=== PATIENT | male | born 1945 | race Caucasian/White ===

== ENCOUNTER 2016-08-02 12:19 | Emergency (ER) | payer MEDICARE ==
[~2016-08-02] VITALS: Ht 182.9 cm; Wt 168.4 kg
[~2016-08-02 12:19] MED LIST: ACET325T14 PO; ACET500T71 PO; AMLO5TAB2 PO; ASPI-515 PO; ASPI325T4 PO; GABA300C10 PO; IBUP200C8 PO; LORA2TAB99 PO; MUPI22OI2 NS; OXYC5CAP4 PO; PAIN MEDICATION PO; TRAM50TA2 PO
[2016-08-02] MEDS ORDERED: ATOR20TA PO (12:52)
[2016-08-02] MEDS ORDERED: FLUT9.9S NAS (12:53)
[2016-08-02] MEDS ORDERED: CLAR500T3 PO (12:54)
[2016-08-02] MEDS ORDERED: IBUP200T64 PO (12:55)
[2016-08-02] MEDS ORDERED: CYAN25009 PO (12:56)
[2016-08-02] MEDS ORDERED: CHOL5000 PO (12:58)
[2016-08-02] MEDS ORDERED: FLUORESCEIN OPHTHALMIC 1 MG STRIP ONE (12:59)
[2016-08-02] MEDS ORDERED: FLUORESCEIN OPHTHALMIC 1 MG STRIP LEFTEYE ONE (13:00)
[2016-08-02] MEDS ORDERED: PROPARACAINE OPHTH 0.5%, 15ML LEFTEYE ONE (13:00)
[2016-08-02] MEDS ORDERED: PROPARACAINE OPHTH 0.5%, 15ML ONE (13:00)
[2016-08-02 13:46] LABS: BLOOD UREA NITROGEN 20 mg/dL (7-18)
[2016-08-02 13:47] LABS: C-REACTIVE PROTEIN, QUANT 0.47 mg/dL (0.02-0.49)
[2016-08-02] MEDS ORDERED: GABAPENTIN 100 MG CAPSULE PO SCH (16:00)
[2016-08-02 16:07] VITALS: BP 128/80
== END 2016-08-02 16:26 | disposition home or self-care (01) ==
LOC: ED 15:40
DX: H57.8 Other specified disorders of eye and adnexa (principal); R51 Headache
CPT/HCPCS: 36415; 70450; 70480; 80048; 85025; 85651; 86140; 99285; J7512

== ENCOUNTER → 2016-08-23 | Outpatient (CLI) | payer MEDICARE ==
[~2016-08-23] MED LIST changes: +ATOR20TA PO; +CHOL5000 PO; +CLAR500T3 PO; +CYAN25009 PO; +FLUT9.9S NAS; +IBUP200T64 PO
== END | disposition home or self-care (01) ==
LOC: CVU 14:15
PROVIDERS: ATTEND Internal Medicine
DX: I51.7 Cardiomegaly (principal); I10 Essential (primary) hypertension; E66.01 Morbid (severe) obesity due to excess calories; E78.2 Mixed hyperlipidemia; G89.29 Other chronic pain
CPT/HCPCS: 93306

== ENCOUNTER → 2017-12-26 | Outpatient (CLI) | payer MEDICARE ==
[~2017-12-26] MED LIST changes: -AMLO5TAB2 PO; +AMLO5TAB7 PO; +ASPI325T17 PO; -ASPI325T4 PO; +OXYC5CAP2 PO; -OXYC5CAP4 PO; +REGADENOSON 0.4 MG/5 ML SYRINGE ONE
== END | disposition home or self-care (01) ==
LOC: CFH 08:01
PROVIDERS: ATTEND Nurse Practitioner Primary Care
DX: I25.10 Atherosclerotic heart disease of native coronary artery without angina pectoris (principal); E78.2 Mixed hyperlipidemia; E88.81 Metabolic syndrome and other insulin resistance; Z79.899 Other long term (current) drug therapy
CPT/HCPCS: 78452; 93017; A9502; J2785

== ENCOUNTER 2018-02-09 09:36 | Observation (INO) | payer MEDICARE ==
[~2018-02-09] VITALS: Ht 188 cm; Wt 147.9 kg
[~2018-02-09 09:36] MED LIST changes: +AMLO-150 PO; -AMLO5TAB7 PO; -REGADENOSON 0.4 MG/5 ML SYRINGE ONE
[2018-02-09 10:40] VITALS: BP 156/80
[2018-02-09] MEDS ORDERED: ASPI-496 PO (10:57)
[2018-02-09] MEDS ORDERED: IRBE1TAB37 PO (10:57)
[2018-02-09] MEDS ORDERED: EZET10TA18 PO (10:57)
[2018-02-09 11:08] LABS: BASOPHILS # (AUTO) 0.05 x10^3/uL (0-0.1); BASOPHILS % (AUTO) 1 % (0-1); EOSINOPHILS # (AUTO) 0.23 x10^3/uL (0-0.4); EOSINOPHILS % (AUTO) 6 % (1-7); LYMPHOCYTES # (AUTO) 1.23 x10^3/uL (1-3.4); LYMPHOCYTES % (AUTO) 30 % (22-44); MD NO; MEAN CORPUSCULAR HEMOGLOBIN 34.7 pg (27.5-34.5); MEAN CORPUSCULAR HGB CONC 34.4 g/dL (33.2-36.2); MEAN CORPUSCULAR VOLUME 100.7 fL (81-97); MEAN PLATELET VOLUME 8.4 fL (7.4-10.4); MONOCYTES # (AUTO) 0.51 x10^3/uL (0.2-0.8); MONOCYTES % (AUTO) 12 % (2-9); NEUTROPHILS # (AUTO) 2.11 x10^3/uL (1.8-6.8); NEUTROPHILS % (AUTO) 51 % (42-75); PLATELET COUNT 214 x10^3/uL (130-400); RED BLOOD COUNT 4.46 x10^6/uL (4.38-5.82); RED CELL DISTRIBUTION WIDTH 12.8 % (9.4-14.8)
[2018-02-09 11:10] LABS: ANION GAP 5 mmol/L (5-15); CALCIUM 8.8 mg/dL (8.5-10.1); CHLORIDE 109 mmol/L (98-107); CREATININE 1.01 mg/dL (0.7-1.3)
[2018-02-09] MEDS ORDERED: FENTANYL PF 100 MCG/2ML ONE ×2 (12:02→12:35)
[2018-02-09] MEDS ORDERED: VERAPAMIL 2.5 MG/ML, 2ML ONE (12:03)
[2018-02-09] MEDS ORDERED: HEPARIN 1,000 UNITS/ML, 10ML ONE (12:03)
[2018-02-09] MEDS ORDERED: MIDAZOLAM 1 MG/ML, 5ML ONE ×2 (12:03→12:35)
[2018-02-09] MEDS ORDERED: LIDOCAINE 1%, 20ML ONE (12:33)
[2018-02-09] MEDS ORDERED: DIPHENHYDRAMINE 50 MG/ML, 1ML ONE (12:35)
[2018-02-09] MEDS ORDERED: BIVALIRUDIN 250 MG ONE (14:12)
[2018-02-09] MEDS ORDERED: TICAGRELOR 90 MG TABLET ONE (14:12)
[2018-02-09 18:49] VITALS: BP 143/80
[2018-02-09] MEDS: TICAGRELOR 90 MG TABLET PO SCH (20:00)
[2018-02-09 20:32] VITALS: BP 125/80
[2018-02-09] MEDS ORDERED: ATORVASTATIN 40 MG TABLET PO SCH (21:00)
[2018-02-09] MEDS: SODIUM CHLORIDE 0.9% 1,000 ML IV SCH ×2 (21:00→21:30)
[2018-02-10 01:59] VITALS: BP 132/76
[2018-02-10] MEDS: SODIUM CHLORIDE 0.9% 1,000 ML IV SCH (04:46)
[2018-02-10 05:49] LABS: CHLORIDE 107 mmol/L (98-107)
[2018-02-10 06:21] LABS: ANION GAP 7 mmol/L (5-15); CALCIUM 8.6 mg/dL (8.5-10.1); CREATININE 0.91 mg/dL (0.7-1.3)
[2018-02-10 06:29] VITALS: BP 151/88
[2018-02-10] MEDS: TICAGRELOR 90 MG TABLET PO SCH (08:58)
[2018-02-10] MEDS ORDERED: IRBESARTAN 150 MG TABLET PO SCH (09:00)
[2018-02-10] MEDS ORDERED: HYDROCHLOROTHIAZIDE 12.5 MG CAPSULE PO SCH (09:00)
[2018-02-10] MEDS ORDERED: TEMPLATE NON-FORMULARY MED. (Aspirin** (Aspir 81**) 81 MG) PO SCH (09:00)
[2018-02-10] MEDS ORDERED: EZETIMIBE 10 MG TABLET PO SCH (09:00)
[2018-02-10] MEDS ORDERED: ASPIRIN 81 MG TABLET EC PO SCH (09:00)
[2018-02-10 09:04] VITALS: BP 163/87
[2018-02-10] MEDS ORDERED: ASPI81TA45 PO (10:12)
[2018-02-10] MEDS ORDERED: IRBE1TAB37 PO (10:12)
[2018-02-10] MEDS ORDERED: TICA90TA PO (10:12)
== END 2018-02-10 12:05 | disposition home or self-care (01) ==
LOC: CACL 09:36 → ORIP 13:30 → 5SO 15:43
PROVIDERS: ADMIT Internal Medicine Cardiovascular Disease; ATTEND Internal Medicine Cardiovascular Disease
DX: I25.10 Atherosclerotic heart disease of native coronary artery without angina pectoris (principal); I10 Essential (primary) hypertension; E78.2 Mixed hyperlipidemia
CPT/HCPCS: 36415; 80048; 85014; 85018; 85025; 93005; 93458; 93571; 99156; 99157; C1725; C1769; C1874; C1887; C1894; C9600; G0378; J0583; J1200; J1644; J2250; J3010; J3490; Q9967

== ENCOUNTER 2018-04-25 20:05 | Inpatient (IN) | payer MEDICARE ==
[~2018-04-25] VITALS: Ht 188 cm; Wt 153.6 kg
[~2018-04-25 20:05] MED LIST changes: +ASPI-496 PO; +ASPI81TA45 PO; +EZET10TA18 PO; +IRBE1TAB37 PO; +TICA90TA PO
--- NOTE | 2018-04-25 20:42 | NUR ---
Dr. Vallejo at bedside to evaluate pt. EDT at bedside for EKG.
[2018-04-25] MEDS ORDERED: ONDANSETRON 2MG/ML, 2ML ONE (20:45)
[2018-04-25] MEDS ORDERED: HYDROmorphone 1 MG/ML, 1ML AMP ONE ×2 (20:45→21:20)
[2018-04-25] MEDS ORDERED: ONDANSETRON 2MG/ML, 2ML IVPush ONE (21:00)
[2018-04-25] MEDS ORDERED: SODIUM CHLORIDE FLUSH 10ML SYR IVF ONE (21:00)
[2018-04-25] MEDS: HYDROmorphone 2 MG/ML, 1ML IVPush PRN ×2 (21:01→21:23)
[2018-04-25 21:11] LABS: BASOPHILS # (AUTO) 0.07 x10^3/uL (0-0.1); BASOPHILS % (AUTO) 2 % (0-1); EOSINOPHILS # (AUTO) 0.12 x10^3/uL (0-0.4); EOSINOPHILS % (AUTO) 3 % (1-7); LYMPHOCYTES # (AUTO) 0.87 x10^3/uL (1-3.4); LYMPHOCYTES % (AUTO) 21 % (22-44); MD NO; MEAN CORPUSCULAR HEMOGLOBIN 33.9 pg (27.5-34.5); MEAN CORPUSCULAR HGB CONC 34.5 g/dL (33.2-36.2); MEAN CORPUSCULAR VOLUME 98.3 fL (81-97); MEAN PLATELET VOLUME 7.9 fL (7.4-10.4); MONOCYTES # (AUTO) 0.41 x10^3/uL (0.2-0.8); MONOCYTES % (AUTO) 10 % (2-9); NEUTROPHILS # (AUTO) 2.62 x10^3/uL (1.8-6.8); NEUTROPHILS % (AUTO) 64 % (42-75); PLATELET COUNT 192 x10^3/uL (130-400); RED BLOOD COUNT 4.36 x10^6/uL (4.38-5.82); RED CELL DISTRIBUTION WIDTH 12.1 % (9.4-14.8)
[2018-04-25 21:23] LABS: ALANINE AMINOTRANSFERASE 27 U/L (12-78); ANION GAP 10 mmol/L (5-15); CHLORIDE 98 mmol/L (98-107); INTERNATIONAL NORMALIZED RATIO 1.02 (0.93-1.1); PROTHROMBIN TIME 10.7 Seconds (9.6-11.5)
--- NOTE | 2018-04-25 21:24 | NUR ---
JOSE RN: PT CURRENTLY RESTING ON [employer]. NAD NOTED. SKIN PWD. RESP EVEN AND EQAUL. PT C/O 11/15 LOWER ABD PAIN. PT REMEDICATED ORDERED FOR PAIN. PT ON CONT BP, CARDIAC AND O2 MONITORS. CALL LIGHT WITHIN REACH. WILL CONT TO MONITOR PT.
[2018-04-25 21:25] LABS: ALKALINE PHOSPHATASE 81 U/L (45-117); BILIRUBIN,TOTAL 0.6 mg/dL (0.2-1.0); TOTAL PROTEIN 7.1 g/dL (6.4-8.2)
--- NOTE | 2018-04-25 21:47 | NUR ---
Pt to imaging, with tech, via [employer].
[2018-04-25] MEDS ORDERED: OMNIPAQUE 350 MG/ML, 150 ML BOTTLE ONE (22:02)
--- NOTE | 2018-04-25 22:35 | NUR ---
Pt resting on [employer], playing on phone. VSS.
--- NOTE | 2018-04-25 22:47 | NUR ---
Dr. Vallejo at bedside to discuss ED findings and POC.
--- NOTE | 2018-04-25 23:06 | NUR ---
Gen Surg MD at bedside to evaluate pt.
--- NOTE | 2018-04-25 23:07 | NUR ---
Urine sample collected and sent to lab.
[2018-04-25 23:14] LABS: MICROSCOPIC NOT IND
[2018-04-25 23:16] LABS: CULTURE INDICATED? NO
[2018-04-25] MEDS ORDERED: ATOR20TA37 PO (23:32)
[2018-04-25] MEDS ORDERED: CLOP75TA PO (23:32)
--- NOTE | 2018-04-25 23:35 | NUR ---
Telephone SBAR report called to [facility].
[2018-04-26] MEDS ORDERED: CEFOTETAN 2 GM ONE (00:12)
[2018-04-26] MEDS ORDERED: SUCCINYLCHOLINE 20 MG/ML, 10ML ONE (00:12)
[2018-04-26] MEDS ORDERED: ONDANSETRON 2MG/ML, 2ML ONE (00:12)
[2018-04-26] MEDS ORDERED: ROCURONIUM 10 MG/ML,10ML ONE (00:12)
[2018-04-26] MEDS ORDERED: FENTANYL PF 250 MCG/5ML ONE (00:23)
[2018-04-26] MEDS ORDERED: PROPOFOL 50 ML ONE (00:23)
[2018-04-26] MEDS ORDERED: ONDANSETRON 2MG/ML, 2ML IV PRN (01:00)
[2018-04-26] MEDS ORDERED: PROMETHAZINE 25 MG SUPP PR PRN (01:00)
[2018-04-26] MEDS ORDERED: DIPHENHYDRAMINE 50 MG/ML, 1ML IVPush PRN (01:00)
[2018-04-26] MEDS ORDERED: PROMETHAZINE 12.5 MG SUPP PR PRN (01:00)
[2018-04-26] MEDS ORDERED: MORPHINE SULFATE 4 MG/ML, 1ML IVPush PRN (01:00)
[2018-04-26] MEDS ORDERED: DIAZEPAM 5 MG/ML, 2ML IVPush PRN (01:00)
[2018-04-26] MEDS ORDERED: LABETALOL 5MG/ML, 20ML IV PRN (01:00)
[2018-04-26] MEDS ORDERED: PROMETHAZINE 25 MG/ML, 1ML IV PRN (01:00)
[2018-04-26] MEDS ORDERED: MIDAZOLAM 1 MG/ML, 2ML IV PRN (01:00)
[2018-04-26] MEDS ORDERED: ONDANSETRON ODT 8 MG PO PRN (01:00)
[2018-04-26] MEDS ORDERED: OXYcodone 5 MG/5 ML ORAL.SOL UDC PO PRN (01:00)
[2018-04-26] MEDS ORDERED: EPHEDRINE 50 MG/ML, 1ML IM PRN (01:00)
[2018-04-26] MEDS ORDERED: EPHEDRINE 50 MG/ML, 1ML IVPush PRN (01:00)
[2018-04-26] MEDS ORDERED: FENTANYL PF 100 MCG/2ML ONE (01:01)
[2018-04-26] MEDS ORDERED: HYDROmorphone 2 MG/ML, 1ML ONE (01:02)
[2018-04-26] MEDS ORDERED: BUPIVACAINE/PF-EPI 0.5% 1:200K INFIL ONE (01:03)
[2018-04-26] MEDS ORDERED: BUPIVACAINE/PF-EPI 0.5% 1:200K ONE (01:03)
[2018-04-26] MEDS: FENTANYL PF 100 MCG/2ML IV PRN ×2 (01:30→01:43)
[2018-04-26] MEDS: HYDROmorphone 2 MG/ML, 1ML IVPush PRN ×3 (01:44→01:57)
[2018-04-26] MEDS ORDERED: OXYcodone 5 MG/5 ML ORAL.SOL UDC ONE (01:47)
[2018-04-26] MEDS ORDERED: MEPERIDINE/PF 25MG/ML,1ML ONE (01:55)
[2018-04-26] MEDS ORDERED: MEPERIDINE/PF 25MG/0.5ML IVPush PRN (02:00)
[2018-04-26 02:45] VITALS: BP 165/91
[2018-04-26 03:00] VITALS: BP 130/80
[2018-04-26] MEDS ORDERED: ONDANSETRON 2MG/ML, 2ML IVPush PRN (03:30)
[2018-04-26] MEDS: MORPHINE SULFATE 4 MG/ML, 1ML IVPush PRN ×2 (03:54→05:53)
[2018-04-26] MEDS: SODIUM CHLORIDE 0.9% 1,000 ML IV SCH ×2 (03:55→10:03)
[2018-04-26] MEDS: CEFOTETAN PMX 2GM/50ML 50 ML IV SCH ×2 (03:55→15:54)
[2018-04-26] MEDS: FAMOTIDINE 20 MG/2 ML IVPush SCH ×2 (03:55→15:54)
[2018-04-26 05:55] LABS: ANION GAP 6 mmol/L (5-15); CALCIUM 8.6 mg/dL (8.5-10.1); CHLORIDE 99 mmol/L (98-107); CREATININE 1.22 mg/dL (0.7-1.3)
[2018-04-26 06:34] VITALS: BP 125/78
[2018-04-26] MEDS: IRBESARTAN 150 MG TABLET PO SCH (08:51)
[2018-04-26] MEDS: OXYcodone/APAP 5/325MG TABLET PO PRN ×3 (11:00→20:05)
[2018-04-26 12:55] VITALS: BP 101/64
[2018-04-26 15:14] LABS: ANION GAP 5 mmol/L (5-15); CALCIUM 8.3 mg/dL (8.5-10.1); CHLORIDE 101 mmol/L (98-107); CREATININE 1.11 mg/dL (0.7-1.3)
[2018-04-26] MEDS: NS + 20MEQ KCL 1,000 ML IV SCH (17:00)
[2018-04-26 19:06] VITALS: BP 135/85
[2018-04-27 00:06] VITALS: BP 131/83
[2018-04-27] MEDS: NS + 20MEQ KCL 1,000 ML IV SCH ×2 (02:10→14:11)
[2018-04-27] MEDS: CEFOTETAN PMX 2GM/50ML 50 ML IV SCH (03:52)
[2018-04-27] MEDS: FAMOTIDINE 20 MG/2 ML IVPush SCH ×2 (03:53→19:55)
[2018-04-27 05:13] LABS: BASOPHILS # (AUTO) 0.05 x10^3/uL (0-0.1); BASOPHILS % (AUTO) 1 % (0-1); EOSINOPHILS % (AUTO) 2 % (1-7); LYMPHOCYTES # (AUTO) 0.74 x10^3/uL (1-3.4); LYMPHOCYTES % (AUTO) 15 % (22-44); MD NO; MEAN CORPUSCULAR HEMOGLOBIN 34.2 pg (27.5-34.5); MEAN CORPUSCULAR HGB CONC 34.5 g/dL (33.2-36.2); MEAN CORPUSCULAR VOLUME 99.1 fL (81-97); MEAN PLATELET VOLUME 8.1 fL (7.4-10.4); MONOCYTES # (AUTO) 0.79 x10^3/uL (0.2-0.8); MONOCYTES % (AUTO) 17 % (2-9); NEUTROPHILS # (AUTO) 3.11 x10^3/uL (1.8-6.8); NEUTROPHILS % (AUTO) 65 % (42-75); PLATELET COUNT 199 x10^3/uL (130-400); RED BLOOD COUNT 3.87 x10^6/uL (4.38-5.82); RED CELL DISTRIBUTION WIDTH 12.5 % (9.4-14.8)
[2018-04-27 05:19] LABS: ANION GAP 5 mmol/L (5-15); CALCIUM 8.4 mg/dL (8.5-10.1); CHLORIDE 101 mmol/L (98-107); CREATININE 1.26 mg/dL (0.7-1.3)
[2018-04-27] MEDS: OXYcodone/APAP 5/325MG TABLET PO PRN ×4 (07:29→23:51)
[2018-04-27 07:43] VITALS: BP 110/53
[2018-04-27] MEDS: IRBESARTAN 150 MG TABLET PO SCH (07:43)
[2018-04-27] MEDS ORDERED: BISACODYL 10 MG SUPP PR ONE (10:00)
[2018-04-27] MEDS ORDERED: BISACODYL 10 MG SUPP PR PRN (10:00)
[2018-04-27 18:22] VITALS: BP 117/72
[2018-04-28 01:58] VITALS: BP 120/75
[2018-04-28] MEDS: NS + 20MEQ KCL 1,000 ML IV SCH (03:40)
[2018-04-28] MEDS: OXYcodone/APAP 5/325MG TABLET PO PRN ×2 (03:47→09:37)
[2018-04-28 05:44] LABS: ANION GAP 7 mmol/L (5-15); CALCIUM 8.6 mg/dL (8.5-10.1); CHLORIDE 100 mmol/L (98-107); CREATININE 0.74 mg/dL (0.7-1.3)
[2018-04-28 07:05] VITALS: BP 135/84
[2018-04-28] MEDS: FAMOTIDINE 20 MG/2 ML IVPush SCH ×2 (08:29→19:37)
[2018-04-28] MEDS: IRBESARTAN 150 MG TABLET PO SCH (08:29)
[2018-04-28] MEDS ORDERED: IBUPROFEN 200 MG TABLET PO PRN (12:00)
[2018-04-28 14:00] VITALS: BP 118/72
[2018-04-28] MEDS: OXYcodone/APAP 7.5/325MG TABLET PO PRN ×2 (14:12→20:42)
[2018-04-28] MEDS: DOCUSATE 100 MG CAPSULE PO SCH ×2 (14:12→19:36)
[2018-04-28 18:29] VITALS: BP 119/73
[2018-04-29 00:40] VITALS: BP 122/75
[2018-04-29] MEDS: OXYcodone/APAP 7.5/325MG TABLET PO PRN ×2 (02:49→08:58)
[2018-04-29 08:00] VITALS: BP 131/79
[2018-04-29] MEDS: FAMOTIDINE 20 MG/2 ML IVPush SCH (08:38)
[2018-04-29] MEDS: DOCUSATE 100 MG CAPSULE PO SCH (08:38)
[2018-04-29] MEDS: IRBESARTAN 150 MG TABLET PO SCH (08:39)
[2018-04-29] MEDS ORDERED: OXYC1TAB7 PO (13:21)
[2018-04-29] MEDS ORDERED: AMOX1TAB61 PO (13:22)
[2018-04-29 13:52] VITALS: BP 117/73
== END 2018-04-29 14:45 | disposition home or self-care (01) | DRG 330 ==
LOC: ED 22:46 → EDIP 23:30 → 4NOR 04-26 02:45
PROVIDERS: ADMIT Surgery; ATTEND Surgery
PROC: 0DBU0ZZ Excision of Omentum, Open Approach (ICD-10-PCS; 2018-04-25)
PROC: 0WQF0ZZ Repair Abdominal Wall, Open Approach (ICD-10-PCS; 2018-04-25)
PROC: 0DB80ZZ Excision of Small Intestine, Open Approach (ICD-10-PCS; principal; 2018-04-25 23:45)
DX: K42.0 Umbilical hernia with obstruction, without gangrene (principal); E87.1 Hypo-osmolality and hyponatremia; K56.7 Ileus, unspecified; Z68.41 Body mass index [BMI] 40.0-44.9, adult; M54.9 Dorsalgia, unspecified; G89.29 Other chronic pain; E11.9 Type 2 diabetes mellitus without complications; E78.00 Pure hypercholesterolemia, unspecified; E66.01 Morbid (severe) obesity due to excess calories; E78.5 Hyperlipidemia, unspecified; F42.9 Obsessive-compulsive disorder, unspecified; I10 Essential (primary) hypertension; Z96.643 Presence of artificial hip joint, bilateral; I25.10 Atherosclerotic heart disease of native coronary artery without angina pectoris; Z88.2 Allergy status to sulfonamides; Z95.5 Presence of coronary angioplasty implant and graft; Z87.891 Personal history of nicotine dependence; Z82.49 Family history of ischemic heart disease and other diseases of the circulatory system
CPT/HCPCS: 36415; 74177; 80048; 80053; 81003; 83690; 85025; 85610; 86850; 86900; 88307; 93005; 96374; 96375; G0378; J1170; J2175; J2405; J2704; J3010; J3480; Q9967; J0330; J3490; J7030

== ENCOUNTER → 2020-09-21 | Outpatient (CLI) | payer MEDICARE ==
[~2020-09-21] MED LIST changes: +ACET500T64 PO; -ACET500T71 PO; +AMOX1TAB61 PO; -ASPI-515 PO; +ASPI-963 PO; +ATOR20TA37 PO; +CLOP75TA PO; -EZET10TA18 PO; +EZET10TA70 PO; +OXYC1TAB7 PO
[2020-09-21 14:11] LABS: BASOPHILS % (AUTO) 1 % (0-1); EOSINOPHILS % (AUTO) 7 % (1-7); LYMPHOCYTES % (AUTO) 27 % (22-44); MEAN CORPUSCULAR HEMOGLOBIN 33.5 pg (27.5-34.5); MEAN CORPUSCULAR HGB CONC 34.3 g/dL (33.2-36.2); MONOCYTES % (AUTO) 11 % (2-9); NEUTROPHILS % (AUTO) 54 % (42-75); PLATELET COUNT 191 x10^3/uL (130-400); RED BLOOD COUNT 4.56 x10^6/uL (4.38-5.82)
[2020-09-21 14:17] LABS: MICROSCOPIC NOT IND
[2020-09-21 14:24] LABS: ANION GAP 8 mmol/L (5-15); CALCIUM 9.9 mg/dL (8.5-10.1); CHLORIDE 102 mmol/L (98-107)
[2020-09-21 14:30] LABS: ALANINE AMINOTRANSFERASE 39 U/L (12-78); ALKALINE PHOSPHATASE 82 U/L (45-117); BILIRUBIN,TOTAL 0.6 mg/dL (0.2-1.0); TOTAL PROTEIN 7.8 g/dL (6.4-8.2)
== END | disposition home or self-care (01) ==
LOC: LAB 13:33
PROVIDERS: ATTEND Nurse Practitioner Primary Care
DX: N40.0 Benign prostatic hyperplasia without lower urinary tract symptoms (principal); R31.9 Hematuria, unspecified; E55.9 Vitamin D deficiency, unspecified; E78.2 Mixed hyperlipidemia; E66.9 Obesity, unspecified; E88.81 Metabolic syndrome and other insulin resistance; I10 Essential (primary) hypertension; F51.01 Primary insomnia; Z79.899 Other long term (current) drug therapy
CPT/HCPCS: 36415; 80053; 81003; 84153; 85025; G0103